=== PATIENT | male | born 1960 | race Caucasian/White ===

== ENCOUNTER → 2021-08-20 | Outpatient (CLI) | payer OTHER ==
[~2021-08-20] VITALS: Ht 190.5 cm; Wt 99.8 kg
[~2021-08-20] MED LIST: ASA81BEC PO; BARIATRIC MV-I1 EACH PO; CHLORTHALIDONE25 MG PO; LEVO-T100 MCG PO; NEURONTIN300 MG PO; TOPROL XL100 MG PO; ULTRAM 50MG TAB50 MG PO
--- NOTE | ~2021-08-20 | HPC ---
[facility] [place] [address] PAIN MANAGEMENT CONSULTATION Name: YESY JEFF Room #: REG [facility] BoydDyanaArsalanDyana#: [id number] Admission: 08/20/21 Attend Phys: Rancho Wu DO Discharge: Date of : 58 Report #: [id number] THIS REPORT FOR: cc: Deric Kumar MD, Jonathan T. MD Johnson, James E. DO ~ cc: Dr. Pamela Aguilar DATE OF SERVICE: 08/20/2021 REFERRING PHYSICIAN: Dr. Pamela Aguilar. CHIEF COMPLAINT: Left lower extremity pain. HISTORY OF PRESENT ILLNESS: As you know, the patient is a very pleasant 61-year-old male reporting a greater than 5-year history of left leg pain. The patient has undergone a L4-5 laminectomy in 2016 for chronic low back pain and lower extremity pain with paresthesias. He did relatively well for about 6 weeks when his pain returned. In 2019, he underwent an anterior lumbar interbody fusion at the L5-S1 level, which according to the patient exacerbated his symptoms. He has sought evaluation for this issue over a period of time trialing conservative treatment options and being evaluated by various physicians. He has seen Neurosurgery and Pain Management physicians over the past 5 years, all of which have provided him with minimal improvement in overall symptoms. He followed up with Dr. Pamela Aguilar and was advised possible trial of spinal cord stimulator would be appropriate. The patient was amenable to that idea and referred on to our clinic to discuss those treatment options. The patient reports today his pain is steady. He describes the pain as more of a burning, cramping, stabbing and intermittent numbness and tingling. He places current pain score 4/10. Daily average at 7/10. Worst pain has been is 10/10. The patient states his pain is exacerbated with walking, standing and lifting and improves with lying down. He has been referred to our service to discuss the possibility of a spinal cord stimulator trial implantation to address chronic lumbar radiculopathy, unresponsive to surgery. PAST MEDICAL HISTORY: 1. Hypothyroidism. 2. Hypertension. 3. Chronic low back pain with radiation. 4. Diabetes mellitus type 2. 5. GERD. 6. Sleep apnea, requiring CPAP system. 7. Osteoarthritis. 8. History of nephrolithiasis. PAST SURGICAL HISTORY: [facility] [address] [place] [address] PAIN MANAGEMENT CONSULTATION Name: YESY JEFF Room #: REG [facility] Jessa#: [id number] Admission: 08/20/21 Attend Phys: Rancho Wu DO Discharge: Date of : 58 Report #: [id number] 1. Laminectomy at L4-5 on 10/2015. 2. Tonsillectomy. 3. L5-S1 interbody fusion. 4. Reny-en-Y gastric bypass surgery. SOCIAL HISTORY: The patient denies tobacco use. Denies IV or illicit drug use. Denies any chronic alcohol use. He is a car salesperson. He is working, not receiving workmen's compensation nor is he trying to obtain disability benefits. He is not in any litigation in regards to pain. He is unaccompanied at today's visit. REVIEW OF SYSTEMS: Positive for recent weight gain, decrease in appetite, fatigue and weakness, frequent and recurrent headaches, wearing corrective eyewear, loss of appetite, diarrhea, nocturia, nephrolithiasis, rash and itching with medications, thyroid disease, heat and cold intolerance, chronic low back pain and left thigh pain. All other review of systems negative per 12-point review of systems other than those listed in history of present illness. Pain impact score 30/70, moderate interference of daily activities secondary to pain. ALLERGIES: No known drug allergies. CURRENT MEDICATIONS: Levothyroxine 200 mcg once a day, metoprolol ER 100 mg once a day, tramadol 50 mg q. 6 hours p.r.n. pain, gabapentin 600 mg t.i.d. and chlorthalidone 25 mg per day. IMAGING: No imaging available. PQRS: The patient has known arthritic changes of the lumbar spine. No rheumatoid arthritis. He is placing pain intensity 4/10. He is not a fall risk, has not had a fall in last 3 months. He is not on blood thinners, but is treated for hypertension. He is on no opioid medications. He has a low opioid addiction potential based on assessment tool. Pain impact is 30/70, moderate interference of daily activities secondary to pain. PHYSICAL EXAMINATION: VITAL SIGNS: Blood pressure 115/70, pulse 52, respiratory rate 14 and unlabored. The patient is 97% on room air, height 6 feet 3 inches tall, weight 220 pounds, BMI calculated 27.5. GENERAL: Well-developed, well-nourished, well-hydrated 61-year-old male appearing stated age. He is in no acute distress. Awake, alert and oriented x 3. Pain is rated today at its high as 4/10. HEENT: Normocephalic, atraumatic. Pupils equal, round and responsive to light. Extraocular muscles are intact. He is wearing a mask in compliance with COVID-19 regulations. LUNGS: Clear, no wheeze, rhonchi or rales. CARDIOVASCULAR: Regular. No appreciable gallop, no rub. [address] [address] PAIN MANAGEMENT CONSULTATION Name: YESY JEFF Room #: REG [facility]#: [id number] Admission: 08/20/21 Attend Phys: Rancho Wu DO Discharge: Date of : 58 Report #: [id number] EXTREMITIES: Show no clubbing, no cyanosis and no edema. MUSCULOSKELETAL: Lower extremity strength appears symmetrical 5/5, intact to light touch from L1 through S2 dermatomes. Seated straight leg raising negative. Supine straight leg raising is mildly positive on the left. Deep tendon reflexes 2+/4 at patella and Achilles. Gait and station are normal. He is able to toe walk and heel walk. Babinski's is negative. Ankle clonus negative. ASSESSMENT: 1. Lumbar radiculopathy. 2. Failed lumbar spine surgery. 3. Lumbosacral spondylosis with radiculopathy. 4. Facet arthropathy of lumbar spine. 5. Chronic intractable pain. PLAN: 1. The patient has been referred to our service by his neurosurgeon to discuss the possibility of undergoing a spinal cord stimulator trial implantation. The patient has trialled conservative therapy over the past 5 years when this failed. He went on to surgical options and again these provided only transient improvement. Unfortunately, he continues to experience pain level of 4/10. He has been deemed a nonsurgical candidate at this time and to look towards other treatment options. He and his neurosurgeon to discuss the possibility of undergoing a spinal cord stimulator trial for which the patient has completed the psychiatric evaluation. The patient was then referred on to our clinic to begin the process of getting authorizations to undergo the trial implantation with the [place] dorsal column stimulator. 2. The patient and I reviewed his psychiatric evaluation performed by Dr. Adelina Monae, Ph.D. on 08/09/2021. There was no concerning findings in the psychiatric evaluation that would preclude the patient from undergoing the trial implantation and possible permanent implant. They had indicated no concerning psychopathology. 3. We will begin the process of authorization for the patient to undergo spinal cord stimulator trial implantation with the [place] dorsal column stimulator. We will begin this process immediately. This should not take very much time as we have had all of the information provided to us through the Neurosurgery team and the patient has completed his psychiatric evaluation. We will begin the process of authorization and have the patient return as quickly as possible. 4. No medication changes made at today's visit. The patient will continue current medical therapy as prior prescribed. 5. We wish to thank Dr. Pamela Aguilar for the referral of this patient to our clinic. We will keep you apprised of his response to treatment as we address his failed lumbar spine surgery and chronic lumbar radiculopathy symptoms with a dorsal column stimulator trial. [address] [address] PAIN MANAGEMENT CONSULTATION Name: YESY JEFF Room #: REG CLChava Germain#: [id number] Admission: 08/20/21 Attend Phys: Rancho Wu DO Discharge: Date of : 58 Report #: [id number] Again, we wish to thank you for the opportunity to see the patient in consultation. By: 1148 Rancho Wu DO /nt
[2021-08-20 10:06] VITALS: BP 115/70
--- NOTE | 2021-08-20 10:26 | NUR ---
Pain Clinic Assessment: 1. History of Osteoarthritis: Not Applicable History of Rheumatoid Arthritis: Not Applicable 2. Height: 6 ft. 3 in. 190.5 cm. Weight: 220.0 lb. oz. 99.792 kg. Patient's BMI: 27.5 3. Vital Signs: BP: 115/70 Pulse: 52 Resp: 14 Temp: 02 Sat: 97 ECG Mon: 4. Pain Intensity: 4 5. Fall Risk: Dizziness: N Needs help standing or walking: N Fallen in the last 3 months: N Fall risk comments: 6. Patient on Blood Thinner: None 7. History of Hypertension: Y 8. Opioid Therapy greater than 6 weeks: Opiate Contract Signed: 9. Risk Assessment Tool Provided: 0 LOW RISK 10. Functional Assessment Tool: 11. Recreational Drug Use: Never Drug Type: Tobacco Use: Never Smoker Tobacco Type: Amount or Packs/day: How Many Years: Alcohol Use: No Frequency: Quant:
== END ==
LOC: PAIN 07:02
PROVIDERS: ATTEND Anesthesiology Pain Medicine
DX: M47.27 Other spondylosis with radiculopathy, lumbosacral region (principal); M47.26 Other spondylosis with radiculopathy, lumbar region; G89.29 Other chronic pain; Z79.899 Other long term (current) drug therapy